=== PATIENT | female | born 1955 | race Caucasian/White ===

== ENCOUNTER 2018-09-20 12:12 | Emergency (ER) | payer BC, SELFPAY ==
[2018-09-20 12:20] VITALS: BP 158/70; PULSE 91; RESP 16; TEMP 36.8; O2SAT 99; BMI 26.6
--- NOTE | 2018-09-20 12:48 | PC.NURSE ---
scattered abrasians across upper face including bridge of nose, forehead and left face. + hematoma above nose. No active bleeding.
[2018-09-20] MEDS: ACETAMINOPHEN 325 MG TABLET 975 MG PO (13:07)
--- NOTE | 2018-09-20 14:37 | ED.HEATRA ---
HPI - Head Injury General Chief complaint: Head Injury Stated complaint: FALL LACERATION OF FACE Time Seen by Provider: 09/20/18 12:42 Source: patient Mode of arrival: ambulatory Limitations: no limitations History of Present Illness HPI Narrative: Patient comes emergency department complaining of facial pain and injury after being jerked by her large dog while holding onto the leash. Patient states the dog lunged forward and the leash was wrapped around her wrist. Patient was pulled forward and fell to the pavement, striking the front of her face. Patient states she was wearing glasses, and that the left lens cracked but the glasses did not otherwise break. Patient did not lose consciousness, and denies dizziness or lightheadedness after the injury. She states that she was not injured anywhere else. No neck pain. No nausea or vomiting. No visual changes. Patient does not feel as though she injured her teeth or her jaw. No other complaints at this time. Related Data Home Medications Medication Instructions Recorded Confirmed Vitamin D3 1 cap PO DAILY 09/20/18 09/20/18 venlafaxine 37.5 mg PO DAILY 09/20/18 09/20/18 Allergies Allergy/AdvReac Type Severity Reaction Status Date / Time No Known Drug Allergies Allergy Verified 09/20/18 12:37 Review of Systems Constitutional Denies chills, Denies fever(s), Denies lethargy and Denies weakness Eyes Denies change in vision, Denies eye discharge, Denies irritation and Denies loss of vision ENT Ears, Nose, Mouth, and Throat: Denies change in voice, Denies neck pain and Denies sore throat Comments: Pain, swelling, abrasion Cardiovascular Denies chest pain, Denies irregular heart rhythm, Denies lightheadedness, Denies palpitations, Denies dyspnea, Denies dyspnea on exertion and Denies orthopnea Respiratory Denies cough, Denies dyspnea, Denies dyspnea on exertion and Denies wheezing Gastrointestinal Gastrointestinal: Denies abdominal pain, Denies change in bowel habits, Denies diarrhea, Denies nausea and Denies vomiting Genitourinary Denies hematuria, Denies flank pain, Denies urinary incontinence and Denies urinary urgency Musculoskeletal Denies neck pain Integumentary/Breasts Denies pruritus, Denies erythema, Denies rash and Denies wounds Neurologic Denies confusion, Denies loss of vision and Denies weakness Psychiatric Denies anxiety, Denies confusion, Denies depression, Denies homicidal ideation and Denies suicidal ideation Endocrine Denies palpitations Hematologic/Lymphatic Denies easy bruising Allergic/Immunologic Denies wheezing [facility] Medical History Healthy adult (Acute) Surgical History No pertinent past surgical history (Acute) Social History (Updated 09/20/18 @ 14:40 by Ghada Castro MD) Smoking Status: Never smoker Social History Smoking Status: Never smoker Exam Initial Vital Signs Initial Vital Signs: Vital Signs Temperature 98.3 F 09/20/18 12:20 Pulse Rate 91 H 09/20/18 12:20 Respiratory Rate 16 09/20/18 12:20 Blood Pressure 158/70 H 09/20/18 12:20 Pulse Oximetry 99 09/20/18 12:20 Const General: cooperative and well developed Nutritional Appearance: well nourished Orientation: alert, awake, oriented x3 and not confused HENSC Head: normocephalic Ears: external ears normal Nose: epistaxis (Patient has mild dried epistaxis as use of the introitus to the left naris), external nose abnormal (Mild edema about bridge. 1 cm horizontal skin tear mid nasal bridge) and No nasal discharge Face and sinus: sinuses nontender, face symmetric, no crepitus, ecchymosis (Mild, midline forehead), no sinus tenderness and No dry mucous membranes Mouth: oral mucosae normal, moist mucous membranes and other (Full range of motion mandible) Teeth and gingiva: dentition normal Eyes General: appearance normal, both eyes and all related structures Eyelids: eyelids normal Conjunctivae: conjunctivae normal Sclera: sclerae normal Pupils: PERRL EOM: EOM intact bilaterally Neck Neck: normal visual inspection, trachea midline, No lymphadenopathy, No midline deformity and No JVD Lymphatic: No lymphedema Resp Effort & Inspection: normal respiratory effort, able to speak in complete sentences and no respiratory distress Back/Spine/Pelvis Back: No CVA tenderness Cervical Spine: cervical ROM normal and No pain with cervical ROM Skin Other: Patient has small, linear abrasions over her left face and forehead on the left. Neuro General: alert, awake, oriented x3, gait normal and no focal motor deficits Speech: speech normal Motor: muscle tone normal throughout Extrem General: full ROM, no clubbing, cyanosis or edema, no pedal edema and no calf tenderness Psych Appearance: well kempt Mental Status: mental status grossly normal Attitude: cooperative Thought Content: normal and suicidality Judgment: judgment good Course Course Narrative: Patient's wounds were cleaned with normal saline and fully examined by myself. Patient was not found to have any suturable lacerations on her face. We have discussed wound care. The patient did not have significant bony tenderness, and no bony deformity, and patient declined x-ray. We have discussed home care wounds, as well as the usual indications for return. Orders Ordered: Discontinued Medications Acetaminophen (Tylenol) 975 mg PO NOW ONE Stop: 09/20/18 12:47 Last Admin: 09/20/18 13:07 Dose: 975 mg Vital Signs - 8 hr 09/20/18 12:20 Temperature 98.3 F Pulse Rate 91 H Respiratory Rate 16 Blood Pressure 158/70 H Pulse Oximetry 99 MDM - Head Injury Medical Records Attestation: I reviewed the patient's medical records. Discharge Plan Departure Patient Disposition: Home Clinical Impression: Contusion of face Qualifiers: Encounter type: initial encounter Qualified Code(s): S00.83XA - Contusion of other part of head, initial encounter Abrasion of face Qualifiers: Encounter type: initial encounter Qualified Code(s): S00.81XA - Abrasion of other part of head, initial encounter Instructions: DI for Contusion, DI for Abrasion Activity Restrictions/Additional Instructions: Please keep your wounds clean and dry. If there is any redness spreading away from the wounds, or if your wounds developed drainage, please have them re-evaluated. You may use ice, ibuprofen, and Tylenol as needed for pain. Prescriptions: No Action venlafaxine 37.5 mg capsule,extended release 24hr 37.5 mg PO DAILY RF: 0 Vitamin D3 1 cap PO DAILY RF: 0
[2018-09-20 15:07] VITALS: BP 135/69; PULSE 65; RESP 16; O2SAT 98
== END 2018-09-20 15:05 | disposition home or self-care (01) ==
PROVIDERS: Emergency Provider Emergency Medicine
DX: S00.83XA Contusion of other part of head, initial encounter (principal); S00.81XA Abrasion of other part of head, initial encounter; W18.39XA Other fall on same level, initial encounter
CPT/HCPCS: 99282